=== PATIENT | male | born 1955 | race Two or more races ===

== ENCOUNTER 2016-10-23 17:24 | Emergency (ER) | payer OTHER ==
[2016-10-23] MEDS ORDERED: RX INFO: IV CONTRAST WAS GIVEN 1 EACH MISC MISCELLANE PRN (17:54)
[2016-10-23] MEDS ORDERED: DEXAMETHASONE SOD PHOSPHATE 10 MG/ML 1 ML VIAL IV STA (17:55)
--- NOTE | 2016-10-23 18:26 | ED ---
ENT HPI - General Chief complaint: ENT Stated complaint: sore throat left side Time Seen by Provider: 10/23/16 17:48 Source: patient Mode of arrival: ambulatory Limitations: no limitations - History of Present Illness Initial comments: 61-year-old male presents with sore throat for the last 4 days. Patient states that she is getting worse he states it was hard to swallow tonight. Patient denies any fever. He just having a lot of pain with eating. Patient states he could hardly swallow Tylenol or water tonight he couldn't keep his dinner down. He denies any vomiting vomiting no sinus congestion no cough. No meds used for this. No sick contacts per patient. MD complaint: sore throat, difficulty swallowing - Related Data Previous Rx's Medication Instructions Recorded Clindamycin [Cleocin] 450 mg PO Q8H #30 capsule 10/23/16 Ibuprofen 600 mg PO Q8HR PRN #30 tablet 10/23/16 Allergies Allergy/AdvReac Type Severity Reaction Status Date / Time No Known Allergies Allergy Verified 10/23/16 17:39 Review of Systems ROS Statement: Those systems with pertinent positive or pertinent negative responses have been documented in the HPI. ROS Other: All systems not noted in ROS Statement are negative. Constitutional: Denies: fever ENT: Reports: throat pain Respiratory: Denies: cough, dyspnea Cardiovascular: Denies: chest pain Gastrointestinal: Denies: nausea, vomiting Past Medical History Past Medical History: No Reported History History of Any Multi-Drug Resistant Organisms: None Reported Past Surgical History: No Surgical Hx Reported Past Psychological History: No Psychological Hx Reported Smoking Status: Never smoker Past Alcohol Use History: None Reported Past Drug Use History: None Reported General Exam Limitations: no limitations General appearance: alert, in no apparent distress Eye exam: Present: normal appearance, PERRL, EOMI. Absent: scleral icterus, conjunctival injection, periorbital swelling Expanded Teeth exam: Present: normal inspection Throat exam: L peritonsillar mass Neck exam: Present: tenderness (Left), lymphadenopathy (Left anterior) Respiratory exam: Present: normal lung sounds bilaterally. Absent: respiratory distress, wheezes, rales, rhonchi, stridor Cardiovascular Exam: Present: regular rate, normal rhythm, normal heart sounds. Absent: systolic murmur, diastolic murmur, rubs, gallop, clicks Course Vital Signs 10/23/16 17:37 Temperature 99.3 F Pulse Rate 100 Respiratory 18 Rate Blood Pressure 138/86 O2 Sat by Pulse 98 Oximetry Medical Decision Making - Medical Decision Making Patient was also evaluated by Dr. Padron. Patient will be transferred to room 14 with further eval and treatment for peritonsillar abscess. Reviewed computed tomography scan no drainable abscess however there is soft tissue palate swelling and radiologist cannot Rule out mass. I did explain this to the patient to follow-up with ENT in the next few days. Patient does have elevated white blood cell count cell count we'll dress with clindamycin IV along with oral clindamycin at home. patient to take medications as directed along with ibuprofen for pain and swelling. Patient understands if symptoms at all progress or worsen patient to return immediately to the ER. - Lab Data Result diagrams: 10/23/16 18:20 10/23/16 18:20 Lab Results 10/23/16 10/23/16 10/23/16 Range/Units 18:20 18:20 19:00 WBC 15.3 H (3.8-10.6) k/uL RBC 5.13 (4.30-5.90) m/uL Hgb 16.5 (13.0-17.5) gm/dL Hct 49.2 (39.0-53.0) % MCV 96.0 (80.0-100.0) fL MCH 32.2 (25.0-35.0) pg MCHC 33.6 (31.0-37.0) g/dL RDW 14.0 (11.5-15.5) % Plt Count 281 (150-450) k/uL Neutrophils % 79 % Lymphocytes % 13 % Monocytes % 6 % Eosinophils % 1 % Basophils % 0 % Neutrophils # 12.1 H (1.3-7.7) k/uL Lymphocytes # 1.9 (1.0-4.8) k/uL Monocytes # 0.9 (0-1.0) k/uL Eosinophils # 0.1 (0-0.7) k/uL Basophils # 0.1 (0-0.2) k/uL Sodium 141 (137-145) mmol/L Potassium 4.7 (3.5-5.1) mmol/L Chloride 107 (98-107) mmol/L Carbon Dioxide 23 (22-30) mmol/L Anion Gap 11 mmol/L BUN 9 (9-20) mg/dL Creatinine 0.96 (0.66-1.25) mg/dL Est GFR (MDRD) Af Amer >60 (>60 ml/min/1.73 sqM) Est GFR (MDRD) Non-Af >60 (>60 ml/min/1.73 sqM) Glucose 91 (74-99) mg/dL Calcium 9.3 (8.4-10.2) mg/dL Total Bilirubin 1.0 (0.2-1.3) mg/dL AST 40 (17-59) U/L ALT 23 (21-72) U/L Alkaline Phosphatase 92 (38-126) U/L Total Protein 7.5 (6.3-8.2) g/dL Albumin 4.5 (3.5-5.0) g/dL Group A Strep Rapid Negative (Negative) Disposition Clinical Impression: Tonsillitis, Leukocytosis Disposition: HOME SELF-CARE Condition: Good Instructions: Leukocytosis (ED), Tonsillitis (ED) Prescriptions: Ibuprofen 600 mg PO Q8HR PRN #30 tablet PRN Reason: Pain Clindamycin [Cleocin] 450 mg PO Q8H #30 capsule Referrals: None,Stated [Primary Care Provider] - 1-2 days Tigre Youngblood MD [STAFF PHYSICIAN] - 1-2 days
[2016-10-23 18:38] LABS: Basophils # (A) 0.1 k/uL (0-0.2); Basophils % (A) 0 %; CH 33.4; CHCM 34.9; Eosinophils # (A) 0.1 k/uL (0-0.7); Eosinophils % (A) 1 %; HCT 49.2 % (39.0-53.0); HDW 2.64; HGB 16.5 gm/dL (13.0-17.5); Luc # (Auto) 0.21; Luc % (Auto) 1; Lymphocytes # (A) 1.9 k/uL (1.0-4.8); Lymphocytes % (A) 13 %; MCH 32.2 pg (25.0-35.0); MCHC 33.6 g/dL (31.0-37.0); Mean Platelet Volume 7.4; Monocytes # (A) 0.9 k/uL (0-1.0); Monocytes % (A) 6 %; Neutrophils # (A) 12.1 k/uL (1.3-7.7); Neutrophils % (A) 79 %; RBC 5.13 m/uL (4.30-5.90); WBC 15.3 k/uL (3.8-10.6); WBC (Perox) 15.21
[2016-10-23 18:48] LABS: ALT 23 U/L (21-72); AST 40 U/L (17-59); Alkaline Phosphatase 92 U/L (38-126); Anion Gap 11 mmol/L; Blood Urea Nitrogen 9 mg/dL (9-20); Calcium 9.3 mg/dL (8.4-10.2); Carbon Dioxide 23 mmol/L (22-30); Chloride 107 mmol/L (98-107); Glucose 91 mg/dL (74-99); Non-African American GFR(MDRD) >60 (>60 ml/min/1.73 sqM); Potassium 4.7 mmol/L (3.5-5.1); Sodium 141 mmol/L (137-145); Total Protein 7.5 g/dL (6.3-8.2)
--- NOTE | 2016-10-23 19:33 | CT ---
EXAMINATION TYPE: CT soft tissue neck w con DATE OF EXAM: 10/23/2016 7:02 PM COMPARISON: NONE HISTORY: Sore throat x3 days. CT DLP: 298.9 mGycm Automated exposure control for dose reduction was used. CONTRAST: CT scan of the neck is performed following with IV Contrast, patient injected with 100 mL of Omnipaqu e 300. Axial images are obtained, coronal and sagittal reformatted images are reviewed. FINDINGS: There is normal branching pattern of the great vessels on the aortic arch. Thyroid gland is symmetric . There is contrast opacification of the carotid arteries and jugular veins. I see no evidence of lin nosis. There is bilateral contrast opacification of the vertebral arteries. The trachea appears normal. Exam is limited by metal in the fillings. I see no pharyngeal mass. The e piglottis appears normal. There is some elongated density extending down to the epiglottis from the s oft palate. This could be mucus. There is inhomogeneous enhancement and enlargement of the soft tissues on the left side of the oral p harynx. There is very slight effacement of the airway. Submandibular salivary glands are symmetric. The parotid glands are symmetric. IMPRESSION: Inhomogeneous enlargement of the left tonsil compared to the right consistent with tonsi llitis. No drainable abscess seen. There is probably mucous extending in the hypopharynx down to the epiglottis. A mass from the soft palate cannot be entirely excluded. Correlation with the physical ex am is recommended.
[2016-10-23] MEDS ORDERED: CLINDAMYCIN 600 MG in DEXTROSE 5% IN WATER 50 ML IVPB STA ×2 (20:00)
[2016-10-23 20:48] VITALS: BP 113/67; PULSE 69; RESP 16; TEMP 97.7
== END 2016-10-23 20:47 | disposition home or self-care (01) ==
LOC: EC 17:24
DX: J03.90 Acute tonsillitis, unspecified (principal); D72.829 Elevated white blood cell count, unspecified
CPT/HCPCS: 36415; 80053; 85025; 87081; 87430; 70491; 99283; 96365; 96375; J1100; Q9967